=== PATIENT | male | born 1995 | race African-American/Black ===

== ENCOUNTER 2019-12-29 11:49 | Emergency (ER) | payer MEDICAID ==
[~2019-12-29] VITALS: Ht 172.7 cm; Wt 70.0 kg
[2019-12-29 12:00] VITALS: BP 138/60
[2019-12-29] MEDS ORDERED: ONDANSETRON ODT 4 MG TAB.RAPDIS. PO ONE (12:45)
[2019-12-29] MEDS ORDERED: ACETAMINOPHEN 500 MG TABLET PO ONE (12:45)
[2019-12-29] MEDS ORDERED: DEXAMETHASONE 4 MG TABLET PO SCH (12:45)
--- NOTE | 2019-12-29 13:01 | PHYS DOC ---
General Adult EDM: Chief Complaint: FEVER HPI: HPI: Patient is a 24 year old male who presents with this morning awoke with a sore throat, nausea, fever and chills. He states he took no medications at home to help. He is drinking and eating appropriately. Review of Systems: Review of Systems: Constitutional: fever or chills. [] HENT: Denies nasal congestion. +sore throat. [] Heart Score: Risk Factors: Risk Factors: DM, Current or recent (<one month) smoker, HTN, HLP, family history of CAD, obesity. Risk Scores: Score 0 - 3: 2.5% MACE over next 6 weeks - Discharge Home Score 4 - 6: 20.3% MACE over next 6 weeks - Admit for Clinical Observation Score 7 - 10: 72.7% MACE over next 6 weeks - Early Invasive Strategies Current Medications: Current Medications Medications (Trade) Dose Ordered Sig/Citlali Start Time Stop Time Status Last Admin Dose Admin Acetaminophen (Tylenol) 1,000 mg 1X ONCE 12/29/19 12:45 12/29/19 12:48 DC Dexamethasone (Decadron) 8 mg 1X 12/29/19 12:45 Ondansetron HCl (Zofran Odt) 4 mg 1X ONCE 12/29/19 12:45 12/29/19 12:48 DC Allergies: Allergies: Allergies Coded Allergies Type Severity Reaction Last Updated Verified No Known Drug Allergies 12/29/19 No Physical Exam: PE: Constitutional: Well developed, well nourished, no acute distress, non-toxic appearance. [] HENT: Normocephalic, atraumatic, bilateral external ears normal, oropharynx moist, no oral exudates, nose normal. Bilateral tonsils 2+ swelling with exudates. [] Eyes: PERRLA, EOMI, conjunctiva normal, no discharge. [] Neck: Normal range of motion, no tenderness, supple, no stridor. [] Cardiovascular:Heart rate regular rhythm, no murmur [] Lungs & Thorax: Bilateral breath sounds clear to auscultation [] Abdomen: Bowel sounds normal, soft, no tenderness, no masses, no pulsatile masses. [] Skin: Warm, dry, no erythema, no rash. [] Back: No tenderness, no CVA tenderness. [] Extremities: No tenderness, no cyanosis, no clubbing, ROM intact, no edema. [] Neurologic: Alert and oriented X 3, normal motor function, normal sensory function, no focal deficits noted. [] Psychologic: Affect normal, judgement normal, mood normal. [] EKG: EKG: [] Radiology/Procedures: Radiology/Procedures: [] Course & Med Decision Making: Course & Med Decision Making Pertinent Labs and Imaging studies reviewed. (See chart for details) Alert and oriented. Speaks in full clear sentences. No trismus. Uvula midline. Bilateral tonsils 2+ swelling with exudates. Lungs are clear to auscultation all lobes. Skin pink warm and dry. Patient is febrile in the ED. [] Dragon Disclaimer: DragAcquaintable Disclaimer: This electronic medical record was generated, in whole or in part, using a voice recognition dictation system. Departure Departure Impression: Primary Impression: Strep throat Disposition: HOME, SELF-CARE Condition: STABLE Referrals: UNKNOWN PCP NAME (PCP) Patient Instructions: Strep Throat Additional Instructions: Take Tylenol for your fever and pain. Take medication with food and as prescribed until it is gone. Follow-up with primary care physician if needed. Scripts Acetaminophen (ACETAMINOPHEN) 500 Mg Tablet 2 TAB PO PRN Q8HRS PRN for pain or fever for 15 Days, #60 TAB 0 Refills Prov: CARRINGTON CAI APRN 12/29/19 Ondansetron (ONDANSETRON ODT) 4 Mg Tab.rapdis 1 TAB PO PRN Q6-8HRS, #16 TAB Prov: CARRINGTON CAI APRN 12/29/19 Amoxicillin (AMOXICILLIN) 500 Mg Capsule 1 CAP PO BID, #20 CAP Prov: CARRINGTON CAI APRN 12/29/19 Justicifation of Admission Dx: Justifications for Admission: Justification of Admission Dx: N/A CARRINGTON CAI APRN Dec 29, 2019 13:01
[2019-12-29] MEDS ORDERED: ACET500T68 PO (13:16)
[2019-12-29] MEDS ORDERED: ONDA4TAB12 PO (13:16)
[2019-12-29] MEDS ORDERED: AMOX500C PO (13:16)
[2019-12-29] MEDS ORDERED: DEXAMETHASONE 4 MG TABLET PO ONE (13:45)
== END 2019-12-29 13:35 | disposition home or self-care (01) ==
LOC: ER 11:49
DX: J02.0 Streptococcal pharyngitis (principal); R50.9 Fever, unspecified; B95.5 Unspecified streptococcus as the cause of diseases classified elsewhere; R11.0 Nausea
CPT/HCPCS: 87880; 99284; J8540